=== PATIENT | male | born 2005 | race Caucasian/White ===

== ENCOUNTER 2025-02-18 15:29 | Emergency (ER) | payer SELFPAY ==
--- NOTE | 2025-02-18 15:34 | ED.EYEPROB ---
HPI - Eye Problem General Chief complaint: Eye Problems Stated complaint: L EYE PROBLEM Source: patient and RN notes reviewed Mode of arrival: ambulatory Limitations: no limitations History of Present Illness HPI Narrative: Patient is a 19-year-old male who presents to the [facility] with complaints of possible stye to his left eye. Patient states that he noted this stye approximately 2 weeks ago. He has noted purulent drainage from the stye for weeks. Patient presents with hordeolum of the left upper eyelid. Dried purulent drainage noted to the eyelashes. No visual disturbance. No fevers. Related Data Allergies Allergy/AdvReac Type Severity Reaction Status Date / Time No Known Allergies Allergy Verified 02/18/25 15:41 Review of Systems Review of Systems: CONSTITUTIONAL: Denies fever, chills, or sweats. EYES: Reports stye to left eye with drainge. ENT: Denies otalgia and sore throat CARDIOVASCULAR: Denies chest pain, palpitations, or edema. RESPIRATORY: Denies cough or dyspnea. GASTROINTESTINAL: Denies abdominal pain, nausea, vomiting, or diarrhea. GENITOURINARY: Denies dysuria or hematuria. SKIN: Denies rash or itching. MUSCULOSKELETAL: Denies back pain, joint pain, or myalgia. NEUROLOGIC: Denies headache, numbness, or weakness. Pertinent positives per HPI. PMFSH Comments At the time of my signature, I reviewed and agree with the nursing past medical, surgical, social, and family history. There is no relevant family history pertinent to the patient complaint. Exam Narrative: GENERAL: This is a well-nourished, well-developed patient, in no apparent distress. HEAD: normocephalic, atraumatic. EYES: PERRL. Hordeolum of the left upper eyelid. Very mild erythema to left eye. Vision is grossly intact. EARS: External ears normal, auditory canals clear and without drainage, TMs normal without perforation. Hearing grossly intact. NOSE: External nose normal with no obvious nasal discharge, nares without redness, no rhinorrhea. THROAT: Mucous membranes moist, posterior pharynx clear. NECK: Neck supple, non-tender without lymphadenopathy, masses or thyromegaly. CARDIOVASCULAR: Regular rate and rhythm without murmurs, gallops, or rubs. RESPIRATORY: Clear to auscultation. Breath sounds equal bilaterally. No wheezes, rales, or rhonchi. GASTROINTESTINAL: Abdomen soft, non-tender, nondistended. Bowel sounds are active. No hepato-splenomegaly, or palpable masses. No guarding. SKIN: warm, intact with no suspicious lesions or rash, good texture and turgor. NEURO: awake, alert, and oriented to person, place and time. There were no obvious focal neurologic abnormalities. EXTREMITIES: No clubbing, cyanosis, or edema. No joint tenderness, effusion, or edema noted. BACK: Nontender without deformity or crepitance. No flank tenderness. Course Course Level of Care: Express Care Visit Vital Signs Vital signs: Vital Signs Temperature 97.9 F 02/18/25 15:42 Pulse Rate 84 02/18/25 15:42 Respiratory Rate 16 02/18/25 15:42 Blood Pressure 134/77 02/18/25 15:42 Pulse Oximetry 98 02/18/25 15:42 Temperature 97.9 F 02/18/25 15:42 Pulse Rate 84 02/18/25 15:42 Respiratory Rate 16 02/18/25 15:42 Blood Pressure 134/77 02/18/25 15:42 Pulse Oximetry 98 02/18/25 15:42 Reviewed MDM - Eye Problem MDM Narrative Medical decision making narrative: Your exam today shows a stye of your left eye, You have been given a prescription for eye ointment. Use the eye ointment as instructed. Follow up with an commercial green building architect if needed.. Do not rub the eye or put anything else in the eye, this can cause abrasions (scratches) on the eye or lead to vision loss. Also it is important not to touch the tube or tip of drops to the eye, as this can cause further infection. Wash your hands very well before instilling the medication. Handwashing can help prevent the spread of disease. Follow up with PCP in 7-10 days Return to ER for problems Contact [facility] if you need an Delivery Technician Differential Diagnosis Differential diagnosis: Likely corneal abrasion, conjunctivitis and hyphema Critical Care Time Critical Care Time Critical Care Time: No Discharge Plan Discharge Clinical Impression: Hordeolum internum left upper eyelid Patient Disposition: Home Condition: Stable Instructions: Antibiotic Form, Stye (ED) Additional Instructions: Your exam today shows a stye of your left eye, You have been given a prescription for eye ointment. Use the eye ointment as instructed. Follow up with an commercial green building architect if needed.. Do not rub the eye or put anything else in the eye, this can cause abrasions (scratches) on the eye or lead to vision loss. Also it is important not to touch the tube or tip of drops to the eye, as this can cause further infection. Wash your hands very well before instilling the medication. Handwashing can help prevent the spread of disease. Follow up with PCP in 7-10 days Return to ER for problems Contact [facility] if you need an Delivery Technician [] [] Patient Language: Lithuanian Prescriptions: New erythromycin 5 mg/gram (0.5 %) ointment 1 applic LEFT EYE DAILY Qty: 3.5 0RF Follow-up/Referrals: PHYSICIAN,[facility] SETTER [Primary Care Provider, Internal Medicine] Time of Disposition: 15:49
[2025-02-18 15:42] VITALS: BP 134/77; PULSE 84; RESP 16; TEMP 36.6; O2SAT 98
== END 2025-02-18 15:52 | disposition home or self-care (01) ==
PROVIDERS: Emergency Provider Nurse Practitioner
DX: H00.024 Hordeolum internum left upper eyelid (principal)
CPT/HCPCS: 99203; G0463